=== PATIENT | male | born 1985 | race Caucasian/White ===

== ENCOUNTER 2016-12-28 15:35 | Emergency (ER) | payer OTHER ==
[2016-12-28 16:13] VITALS: BP 142/88; PULSE 81; TEMP 98; BMI 26.8
[2016-12-28] MEDS ORDERED: ACETAMINOPHEN 325 MG TABLET (FP) PO ONE (17:00)
--- NOTE | 2016-12-28 17:02 | PDOC ---
History of Present Illness - General Chief Complaint: Lightheaded Stated Complaint: DIZZINESS Time Seen by Provider: 12/28/16 16:03 History Source: Patient Exam Limitations: No Limitations - History of Present Illness Initial Comments: 12/28/16 16:57 31 yr male with history of anxiety started last month after his mother was diagnosed with cancer. Pt states he saw his PMD was prescribed xananx but never picked up the prescription. Pt states today had panic attack. Pt denies psychiatric history , no medical history or allergies. Pt denies drug use, ETOH use or smoker. Severity: mild Past History - Past Medical History Allergies/Adverse Reactions: Allergies Allergy/AdvReac Type Severity Reaction Status Date / Time No Known Allergies Allergy Verified 12/28/16 16:13 Home Medications: Ambulatory Orders Alprazolam [Xanax] 0.25 mg PO Q8H PRN #12 tablet MDD 2mg 12/28/16 - Psycho/Social/Smoking Cessation Hx Anxiety: Yes Suicidal Ideation: No Smoking History: Never smoked Information on smoking cessation initiated: No Hx Alcohol Use: Yes Substance Use Type: Alcohol Review of Systems - Review of Systems Able to Perform ROS?: Yes Is the patient limited Kazakh proficient: No Constitutional: No: Symptoms Reported HEENTM: No: Symptoms Reported Respiratory: No: Symptoms reported Cardiac (ROS): No: Symptoms Reported ABD/GI: No: Symptoms Reported : No: Symptoms Reported Musculoskeletal: No: Symptoms Reported Integumentary: No: Symptoms Reported Neurological: No: Symptoms reported Psychiatric: Yes: Anxiety *Physical Exam - Vital Signs Last Vital Signs Temp Pulse Resp BP Pulse Ox 98 F 81 18 142/88 99 12/28/16 16:04 12/28/16 16:04 12/28/16 16:04 12/28/16 16:04 12/28/16 16:04 - Physical Exam General Appearance: Yes: Nourished, Appropriately Dressed HEENT: positive: EOMI, JOANNE, Normal ENT Inspection Neck: negative: Tender Respiratory/Chest: positive: Lungs Clear, Normal Breath Sounds. negative: Chest Tender Cardiovascular: positive: Regular Rhythm, Regular Rate Musculoskeletal: positive: Normal Inspection Extremity: positive: Normal Capillary Refill, Normal Inspection, Normal Range of Motion Integumentary: positive: Normal Color, Dry, Warm Neurologic: positive: Fully Oriented, Alert, Normal Mood/Affect, Normal Response , Motor Strength 5/5 Medical Decision Making - Medical Decision Making 12/28/16 17:01 cc: anxiety causing panic attack today no suicidal or homicidal thoughts no history in the past I have discussed with pt to follow with a therapist, pt agrees I will give pt a short supply of xanax to take as needed, I have discussed the potential side effects and abusive potential. Pt agrees and understands. *DC/Admit/Observation/Transfer Diagnosis at time of Disposition: Anxiety - Discharge Dispostion Disposition: HOME Condition at time of disposition: Good - Prescriptions Prescriptions: Alprazolam [Xanax] 0.25 mg PO Q8H PRN #12 tablet MDD 2mg PRN Reason: Anxiety - Patient Instructions Additional Instructions: take the medication as prescribed return if any worsening symptoms DO NOT DRIVE, DRINK ALCOHOL OR OPERATE MACHINERY WHILE TAKING THE MEDICATION IT MAY MAKE YOU SLEEPY follow with a therapist and your medical doctor for follow up
[2016-12-28] MEDS ORDERED: ACETAMINOPHEN 325 MG TABLET (FP) ONE (17:03)
== END 2016-12-28 17:23 | disposition home or self-care (01) ==
LOC: JERFT 15:35
DX: F41.9 Anxiety disorder, unspecified (principal); F41.0 Panic disorder [episodic paroxysmal anxiety]
CPT/HCPCS: 99281-25